=== PATIENT | female | born 1990 | race Two or more races ===

== ENCOUNTER 2016-08-29 19:57 | Inpatient (IN) | payer SELFPAY ==
[~2016-08-29] VITALS: Ht 160 cm; Wt 76.2 kg
[2016-08-29] MEDS ORDERED: MAG HYDROX/ALUMINUM HYDROX/SMC 30 ML ORAL.SUSP PO PRN (20:15)
[2016-08-29] MEDS ORDERED: FENTANYL PF 100 MCG/2 ML VIAL. IV PRN (20:15)
[2016-08-29] MEDS ORDERED: ACETAMINOPHEN 325 MG TABLET. PO PRN (20:15)
[2016-08-29] MEDS ORDERED: ONDANSETRON PF 4 MG/2 ML VIAL. IV PRN (20:15)
[2016-08-29] MEDS ORDERED: 0.9 % SODIUM CHLORIDE 10 ML DISP.SYRIN. IV PRN (20:15)
[2016-08-29] MEDS ORDERED: BUTORPHANOL 2 MG VIAL. IV PRN (20:15)
[2016-08-29] MEDS ORDERED: OXYTOCIN 30 UNIT/500 ML PREMIX 500 ML IV PRN ×2 (20:15)
[2016-08-29] MEDS ORDERED: LIDOCAINE 1% PF 30 ML VIAL. INJ PRN (20:15)
[2016-08-29] MEDS ORDERED: DIPHENHYDRAMINE HCL 25 MG CAPSULE PO PRN (20:15)
[2016-08-29] MEDS ORDERED: IBUPROFEN 600 MG TABLET. PO PRN (20:15)
[2016-08-29] MEDS ORDERED: TERBUTALINE 1 MG/ML VIAL. SQ PRN (20:15)
[2016-08-29] MEDS ORDERED: DINOPROSTONE 10 MG SUPP.VAG VG ONE (20:30)
[2016-08-29] MEDS: IV RINGERS,LACTATED 1000ML 1,000 ML IV SCH (20:56)
[2016-08-29 21:11] VITALS: BP 122/57
[2016-08-29 21:25] LABS: HEMATOCRIT 34.3 % (36.0-47.0); HEMOGLOBIN 11.4 g/dL (12.0-15.5); RED BLOOD COUNT 3.99 x10^6/uL (3.50-5.40); RED CELL DISTRIBUTION WIDTH 15.6 % (11.5-14.5); WHITE BLOOD COUNT 7.6 x10^3/uL (4.0-11.0)
[2016-08-30] MEDS: IV RINGERS,LACTATED 1000ML 1,000 ML IV SCH ×2 (09:08→17:12)
--- NOTE | 2016-08-30 11:20 | PDOC1 ---
OB - History Hx of Present Care: Good Care Ultrasounds: Normal mid trimester US Obstetrical Complications: Other (Oligohydramnios) Medical Complications: None Past Family/Social History * Past Medical, Surgical, Family and Obstetric Histories reviewed from chart. Rubella: Immune RPR/VDRL: Negative GBS Status: Negative HBsAG: Negative OB - Chief Complaint & HPI Date of Admission: Date of Admission: Aug 29, 2016 at 19:57 Chief Complaint/History : 2 Para: 1 Reason for admission: induction of labor Indication for induction: other (oligohydramnios) Admission Nurse Assessment Rev: Yes Problems: OB - Admission Exam Physical Exam Vitals: VS - Last 72 Hours, by Label Date Time Temp Pulse Resp B/P Pulse Ox O2 Delivery O2 Flow Rate FiO2 08/29/16 21:11 98.1 65 20 122/57 Room Air 98.1 HEENT: Normal Heart: Regular Rate Lungs: Clear Abdomen: Gravid, Non tender, Soft Extremities: Edema Reflexes: Normal Cervical Dilatation: None Effacement: 25% Station: Ballotable Membranes: Intact Heart Rate: Normal Accelerations: Accelerations Present Decelerations: No decelerations Contractions on Admission: None Text A: 40 wks IUP Oligohydramnios P: Admit for cervidil induction, then pitocin in am. ALEXI GOLDBERG Jr, MD Aug 30, 2016 11:20
[2016-08-30] MEDS ORDERED: OXYTOCIN 10 UNIT/ML VIAL. ONE ×2 (11:28→11:58)
[2016-08-30] MEDS ORDERED: ONDANSETRON PF 4 MG/2 ML VIAL. ONE (11:29)
[2016-08-30] MEDS ORDERED: PHENYLEPHRINE in 0.9% NACL PF 1 MG/10 ML DISP.SYRIN. IV ONE (11:29)
[2016-08-30] MEDS ORDERED: EPHEDRINE PF IN SALINE 50 MG/5 ML DISP.SYRIN. IV ONE (11:29)
[2016-08-30] MEDS ORDERED: FENTANYL PF 100 MCG/2 ML VIAL. ONE (11:30)
[2016-08-30] MEDS ORDERED: MORPHINE PF 5 MG/10 ML VIAL. ONE (11:30)
[2016-08-30] MEDS ORDERED: CEFAZOLIN 2GM PREMIX 50 ML IV ONE (11:40)
--- NOTE | 2016-08-30 12:22 | PDOC4 ---
OB Operative Note PRE OP DIAGNOSIS: NRFHT POST OP DIAGNOSIS: NRFHT OPERATION PERFORMED: [address] Ramesh Bus Steward Mitul Anesthesia: Regional (Spinal) Blood Loss 500 ml Specimen placenta and OB Findings: Position (Vertex), Sex (Male), (8/9), Weight (3520 Gram), Fluid (Clear) Complications none Additional Remarks pt. stable. ALEXI RAMESH Jr, MD Aug 30, 2016 12:22
[2016-08-30] MEDS ORDERED: DIPHENHYDRAMINE ORAL ELIXIR 12.5 MG/5 ML. PO PRN (12:30)
[2016-08-30] MEDS ORDERED: ZOLPIDEM 5 MG TABLET. PO PRN (12:30)
[2016-08-30] MEDS ORDERED: OXYTOCIN 30 UNIT/500 ML PREMIX 500 ML IV PRN (12:30)
[2016-08-30] MEDS ORDERED: SIMETHICONE 80 MG TAB.CHEW PO PRN (12:30)
[2016-08-30] MEDS ORDERED: 0.9 % SODIUM CHLORIDE 10 ML DISP.SYRIN. IV PRN (12:30)
[2016-08-30] MEDS ORDERED: MAG HYDROX/ALUMINUM HYDROX/SMC 30 ML ORAL.SUSP PO PRN (12:30)
[2016-08-30] MEDS ORDERED: ONDANSETRON PF 4 MG/2 ML VIAL. IV PRN (12:30)
[2016-08-30] MEDS: KETOROLAC TROMETHAMINE 30 MG/ML SYRINGE. IV PRN (14:17)
[2016-08-30 15:35] VITALS: BP 109/66
[2016-08-30 16:05] VITALS: BP 119/57
[2016-08-30 16:35] VITALS: BP 98/63
[2016-08-30 17:10] VITALS: BP 110/70
--- NOTE | 2016-08-30 18:03 | OP ---
DATE OF SURGERY: PREOPERATIVE DIAGNOSES: 1. 40 weeks' intrauterine . 2. Oligohydramnios. 3. intolerance to labor. POSTOPERATIVE DIAGNOSES: 1. 40 weeks' intrauterine . 2. Oligohydramnios. 3. intolerance to labor. PROCEDURE: Primary low transverse section. SURGEON: Alexi Ramesh MD SOCK EXAMINER: Mitul. ANESTHESIA: Spinal. ESTIMATED BLOOD LOSS: 500 mL. COMPLICATIONS: None. FINDINGS: Viable male , Apgars 8 and 9, weight 3520 grams. Three-vessel cord placenta delivered manually intact. SUMMARY: A 26-year-old 2, para 1 at 40 weeks' gestation who presented for induction of labor secondary to oligohydramnios. The patient was provided Cervidil for cervical ripening overnight. The following morning, she was provided Pitocin augmentation. The patient then began having recurrent variable decelerations and scalp electrode and IUPC were placed. Pitocin was turned off, she continued to have late decelerations indicating intolerance to labor. She was only dilated 3 cm. The patient was counseled on the need for emergent section. Risks, benefits and expectations with drop wirer and voiced clear understanding. DESCRIPTION OF PROCEDURE: The patient was taken to surgery suite and placed in dorsal supine position where she was prepped with ChloraPrep and draped in sterile fashion. After adequate anesthesia, a Pfannenstiel skin incision was made with a scalpel down to and through the fascia. Fascia was extended laterally using curved Sofia scissors. The superior edge of the fascia was grasped with two Allis clamps and dissected free of the abdominal rectus muscle superiorly using blunt dissection along with Bovie cautery. The same process took place inferiorly. The abdominal rectus muscles were dissected bluntly at the midline. The peritoneum was grasped with 2 hemostats and entered sharply with Metzenbaum scissors. This incision was extended superiorly as well as inferiorly. The Familia ring retractor was placed. Low transverse hysterotomy incision made with scalpel down to the infant. The hysterotomy incision was extended laterally and superiorly digitally. With the aid of fundal pressure, the infant's head was delivered in a smooth atraumatic manner. With additional fundal pressure, the posterior shoulder was delivered followed by the anterior shoulder. Rest of male was delivered. was suctioned with bulb syringe orally and nasally. The umbilical cord was clamped twice, cut and viable male was handed to waiting nursing staff. Umbilical cord blood and arterial pH were obtained. Three-vessel cord placenta was delivered manually intact. The uterus was exteriorized, cleared of clot and debris with moist lap. The hysterotomy incision was reapproximated using 1-0 Vicryl suture in a running locked fashion. Uterus palpated firm. Fallopian tubes and ovaries appeared normal bilaterally. Posterior cul-de-sac was cleared of clot and debris with moist lap. The uterus was then returned to the abdomen. Hysterotomy incision was reviewed and was hemostatic. Pericolic gutters were cleared of clot and debris with moist lap. Interceed was placed over the hysterotomy incision in an inverted T fashion. The Familia ring retractor was removed. Pericolic gutters were cleared of clot and debris with a moist lap. The peritoneum was reapproximated using 1-0 Vicryl suture in running fashion. Fascia was reapproximated using 0 Vicryl suture in running fashion. Skin was reapproximated using 4-0 Vicryl suture in a subcuticular manner. The patient tolerated the procedure well and was taken to recovery room in stable condition. Sponge and needle counts correct x 3. ALEXI RAMESH MD DR: EDY/luc JOB#: [id number] / [id number]
[2016-08-30 18:25] VITALS: BP 116/59
[2016-08-30 22:00] VITALS: BP 109/70
[2016-08-31] MEDS: IV RINGERS,LACTATED 1000ML 1,000 ML IV SCH (00:59)
[2016-08-31 01:03] VITALS: BP 99/57
[2016-08-31 06:18] LABS: BASO % 0 % (0-3); EOS % 1 % (0-3); HEMATOCRIT 28.6 % (36.0-47.0); HEMOGLOBIN 9.8 g/dL (12.0-15.5); LYMPH # 1.8 x10^3/uL (1.0-4.8); LYMPH % 16 % (24-48); MEAN CORPUSCULAR HEMOGLOBIN 29 pg (25-35); MEAN CORPUSCULAR HGB CONC 34 g/dL (31-37); MEAN CORPUSCULAR VOLUME 84 fL (79-100); MONO % 8 % (0-9); NEUT % 75 % (31-73); PLATELET COUNT 235 x10^3/uL (140-400); RED CELL DISTRIBUTION WIDTH 15.6 % (11.5-14.5); WHITE BLOOD COUNT 11.1 x10^3/uL (4.0-11.0)
[2016-08-31] MEDS: KETOROLAC TROMETHAMINE 30 MG/ML SYRINGE. IV PRN (06:30)
[2016-08-31 06:32] VITALS: BP 110/63
[2016-08-31 09:00] VITALS: BP 110/63
[2016-08-31] MEDS: FERROUS SULFATE 325 MG TABLET PO SCH (10:30)
[2016-08-31 12:30] VITALS: BP 110/55
[2016-08-31] MEDS: OXYCODONE/APAP 5/325 TABLET. PO PRN ×3 (13:49→22:39)
[2016-08-31 17:51] VITALS: BP 105/58
[2016-08-31] MEDS: IBUPROFEN 800 MG TABLET. PO PRN (18:24)
--- NOTE | 2016-08-31 18:36 | PDOC ---
OB Progress Note Date of Service 08/31/16 Time of Evaluation 1830 Problem List Problems Medical Problems: (1) delivery delivered Status: Acute Notes Pt. feeling well. No complaints. Lab Laboratory Tests Test 08/29/16 20:45 08/31/16 05:47 White Blood Count 7.6x10^3/uL (4.0-11.0) 11.1x10^3/uL (4.0-11.0) Red Blood Count 3.99x10^6/uL (3.50-5.40) 3.40x10^6/uL (3.50-5.40) Hemoglobin 11.4g/dL (12.0-15.5) 9.8g/dL (12.0-15.5) Hematocrit 34.3% (36.0-47.0) 28.6% (36.0-47.0) Mean Corpuscular Volume 86fL (79-100) 84fL (79-100) Mean Corpuscular Hemoglobin 29pg (25-35) 29pg (25-35) Mean Corpuscular Hemoglobin Concent 33g/dL (31-37) 34g/dL (31-37) Red Cell Distribution Width 15.6% (11.5-14.5) 15.6% (11.5-14.5) Platelet Count 272x10^3/uL (140-400) 235x10^3/uL (140-400) RPR Titer Additional Testing Non reactive (Non Reactive) Neutrophils (%) (Auto) 75% (31-73) Lymphocytes (%) (Auto) 16% (24-48) Monocytes (%) (Auto) 8% (0-9) Eosinophils (%) (Auto) 1% (0-3) Basophils (%) (Auto) 0% (0-3) Neutrophils # (Auto) 8.3x10^3uL (1.8-7.7) Lymphocytes # (Auto) 1.8x10^3/uL (1.0-4.8) Monocytes # (Auto) 0.9x10^3/uL (0.0-1.1) Eosinophils # (Auto) 0.1x10^3/uL (0.0-0.7) Basophils # (Auto) 0.0x10^3/uL (0.0-0.2) Laboratory Tests Test 08/31/16 05:47 White Blood Count 11.1x10^3/uL (4.0-11.0) Red Blood Count 3.40x10^6/uL (3.50-5.40) Hemoglobin 9.8g/dL (12.0-15.5) Hematocrit 28.6% (36.0-47.0) Mean Corpuscular Volume 84fL (79-100) Mean Corpuscular Hemoglobin 29pg (25-35) Mean Corpuscular Hemoglobin Concent 34g/dL (31-37) Red Cell Distribution Width 15.6% (11.5-14.5) Platelet Count 235x10^3/uL (140-400) Neutrophils (%) (Auto) 75% (31-73) Lymphocytes (%) (Auto) 16% (24-48) Monocytes (%) (Auto) 8% (0-9) Eosinophils (%) (Auto) 1% (0-3) Basophils (%) (Auto) 0% (0-3) Neutrophils # (Auto) 8.3x10^3uL (1.8-7.7) Lymphocytes # (Auto) 1.8x10^3/uL (1.0-4.8) Monocytes # (Auto) 0.9x10^3/uL (0.0-1.1) Eosinophils # (Auto) 0.1x10^3/uL (0.0-0.7) Basophils # (Auto) 0.0x10^3/uL (0.0-0.2) Medications Current Medications Sodium Chloride 3 ml 3 ml QSHIFT PRN IV AFTER MEDS AND BLOOD DRAWS; Start at 20:15 Lactated Ringer's (Iv Lactated Ringers) 1,000 ml @ 125 mls/hr Q8H IV Last administered on 08/31/16t 00:59; Start 08/29/16 at 20:05 Butorphanol Tartrate (Stadol) 2 mg PRN Q1HR PRN IV Severe labor pain; Start 08/29/16 at 20:15 Fentanyl Citrate (Fentanyl 2ml Vial) 100 mcg PRN Q20MIN PRN IV Labor pain; Start 08/29/16 at 20:15 Acetaminophen (Tylenol) 650 mg PRN Q6HRS PRN PO MILD PAIN / TEMP; Start at 20:15 Ondansetron HCl (Zofran) 4 mg PRN Q4HRS PRN IV NAUSEA/VOMITING Last administered on 08/30/16 19:28; Start 08/29/16 at 20:15 Al Hydroxide/Mg Hydroxide (Mylanta Plus Xs) 30 ml PRN Q4HRS PRN PO HEARTBURN / GAS; Start 08/29/16 at 20:15 Terbutaline Sulfate (Brethine) 0.25 mg 1X PRN PRN SQ SEE COMMENTS; Start at 20:15; Stop 08/30/16 at 20:14; Status DC Lidocaine HCl 30 ml 30 ml 1X PRN PRN INJ SEE COMMENTS; Start 08/29/16 at 20:15; Stop 08/31/16 at 20:14 Oxytocin/Sodium Chloride 500 ml @ 0 mls/hr CONT PRN IV SEE I/O RECORD Last administered on 08/30/16 06:39; Start 08/29/16 at 20:15 Oxytocin/Sodium Chloride (Oxytocin Premix Infusion) 500 ml @ 0 mls/hr CONT PRN PRN IV Post delivery bleeding; Start 08/29/16 at 20:15 Ibuprofen (Motrin) 600 mg PRN Q6HRS PRN PO PAIN; Start 08/29/16 at 20:15 Dinoprostone (Cervidil) 10 mg 1X ONCE VG Last administered on 08/29/16 20:56; Start 08/29/16 at 20:30; Stop 08/29/16 at 20:31; Status DC Diphenhydramine HCl (Benadryl) 50 mg PRN QHS PRN PO INSOMNIA; Start 08/29/16 at 20:15 Oxytocin (Pitocin) 10 unit STK-MED ONCE .ROUTE ; Start 08/30/16 at 11:28; Stop at 11:29; Status DC Ephedrine Sulfate 50 mg STK-MED ONCE IV ; Start 08/30/16 at 11:29; Stop 08/30/16 at 11:30; Status DC Phenylephrine HCl 1 mg STK-MED ONCE IV ; Start 08/30/16 at 11:29; Stop 08/30/16 at 11:30; Status DC Ondansetron HCl (Zofran) 4 mg STK-MED ONCE .ROUTE ; Start 08/30/16 at 11:29; Stop 08/30/16 at 11:30; Status DC Fentanyl Citrate (Fentanyl 2ml Vial) 100 mcg STK-MED ONCE .ROUTE ; Start at 11:30; Stop 08/30/16 at 11:31; Status DC Morphine Sulfate 5 mg 5 mg STK-MED ONCE .ROUTE ; Start 08/30/16 at 11:30; Stop at 11:31; Status DC Cefazolin Sodium/ Dextrose (Ancef 2gm Premix) 50 ml @ As Directed STK-MED ONCE IV ; Start 08/30/16 at 11:40; Stop 08/30/16 at 11:41; Status DC Oxytocin (Pitocin) 10 unit STK-MED ONCE .ROUTE ; Start 08/30/16 at 11:58; Stop at 11:59; Status DC Sodium Chloride 3 ml 3 ml QSHIFT PRN IV AFTER MEDS AND BLOOD DRAWS; Start at 12:30 Oxytocin/Sodium Chloride (Oxytocin Premix Infusion) 500 ml @ 125 mls/hr CONT PRN IV EXCESSIVE POST- BLEEDING; Start 08/30/16 at 12:30; Stop 08/30/16 at 20:29; Status DC Ibuprofen (Motrin) 800 mg PRN Q8HRS PRN PO INFLAMMATION Last administered on t 18:24; Start 08/30/16 at 12:30 Ondansetron HCl (Zofran) 4 mg PRN Q6HRS PRN IV NAUSEA/VOMITING; Start 08/30/16 at 12:30 Docusate Sodium (Colace) 100 mg PRN BID PRN PO CONSTIPATION; Start 08/30/16 at 12:30 Al Hydroxide/Mg Hydroxide (Mylanta Plus Xs) 30 ml PRN Q4HRS PRN PO HEARTBURN / GAS; Start 08/30/16 at 12:30 Simethicone (Gas-X) 80 mg PRN AFTMEALHC PRN PO GAS / BLOATING; Start 08/30/16 at 12:30 Diphenhydramine HCl (Benadryl Oral Elixir) 12.5 mg PRN Q6HRS PRN PO ITCHING; Start 08/30/16 at 12:30 Ferrous Sulfate (Feosol) 325 mg BIDWMEALS PO Last administered on 08/31/16 10: 30; Start 08/30/16 at 17:00 Zolpidem Tartrate (Ambien) 5 mg PRN QHS PRN PO INSOMNIA, MAY REPEAT X1; Start 08/30/16 at 12:30 Oxycodone/ Acetaminophen (Percocet 5/325) 2 tab PRN Q4HRS PRN PO MODERATE PAIN , SEVERE PAIN Last administered on 08/31/16 18:24; Start 08/30/16 at 12:30 Ketorolac Tromethamine (Toradol) 30 mg PRN Q6HRS PRN IV PAIN Last administered on 08/31/16 06:30; Start 08/30/16 at 12:30; Stop 09/04/16 at 12:29 Exam Abd: soft, mild tenderness, fundus firm Bandage in place. Assessment POD#1 s/p c/s Plan of Care: Continue current Tx, Mgmt ALEXI GOLDBERG Jr, MD Aug 31, 2016 18:36
[2016-08-31 22:40] VITALS: BP 99/63
[2016-09-01 06:15] VITALS: BP 106/71
[2016-09-01] MEDS: DOCUSATE SODIUM 100 MG CAPSULE PO PRN (07:58)
[2016-09-01] MEDS: IBUPROFEN 800 MG TABLET. PO PRN ×2 (07:58→17:33)
[2016-09-01] MEDS: OXYCODONE/APAP 5/325 TABLET. PO PRN ×2 (07:58→13:51)
[2016-09-01] MEDS: FERROUS SULFATE 325 MG TABLET PO SCH ×2 (07:58→17:33)
[2016-09-01 10:50] VITALS: BP 105/61
--- NOTE | 2016-09-01 13:37 | PDOC ---
OB Progress Note Date of Service 09/01/16 Time of Evaluation 1330 Problem List Problems Medical Problems: (1) delivery delivered Status: Acute Notes Pt. feeling well. No complaints. Lab Laboratory Tests Test 08/31/16 05:47 White Blood Count 11.1x10^3/uL (4.0-11.0) Red Blood Count 3.40x10^6/uL (3.50-5.40) Hemoglobin 9.8g/dL (12.0-15.5) Hematocrit 28.6% (36.0-47.0) Mean Corpuscular Volume 84fL (79-100) Mean Corpuscular Hemoglobin 29pg (25-35) Mean Corpuscular Hemoglobin Concent 34g/dL (31-37) Red Cell Distribution Width 15.6% (11.5-14.5) Platelet Count 235x10^3/uL (140-400) Neutrophils (%) (Auto) 75% (31-73) Lymphocytes (%) (Auto) 16% (24-48) Monocytes (%) (Auto) 8% (0-9) Eosinophils (%) (Auto) 1% (0-3) Basophils (%) (Auto) 0% (0-3) Neutrophils # (Auto) 8.3x10^3uL (1.8-7.7) Lymphocytes # (Auto) 1.8x10^3/uL (1.0-4.8) Monocytes # (Auto) 0.9x10^3/uL (0.0-1.1) Eosinophils # (Auto) 0.1x10^3/uL (0.0-0.7) Basophils # (Auto) 0.0x10^3/uL (0.0-0.2) Medications Current Medications Sodium Chloride 3 ml 3 ml QSHIFT PRN IV AFTER MEDS AND BLOOD DRAWS; Start at 20:15; Stop 09/01/16 at 06:05; Status DC Lactated Ringer's (Iv Lactated Ringers) 1,000 ml @ 125 mls/hr Q8H IV Last administered on 08/31/16t 00:59; Start 08/29/16 at 20:05; Stop 09/01/16 at 06:05; Status DC Butorphanol Tartrate (Stadol) 2 mg PRN Q1HR PRN IV Severe labor pain; Start 08/29/16 at 20:15 Fentanyl Citrate (Fentanyl 2ml Vial) 100 mcg PRN Q20MIN PRN IV Labor pain; Start 08/29/16 at 20:15 Acetaminophen (Tylenol) 650 mg PRN Q6HRS PRN PO MILD PAIN / TEMP; Start at 20:15 Ondansetron HCl (Zofran) 4 mg PRN Q4HRS PRN IV NAUSEA/VOMITING Last administered on 08/30/16 19:28; Start 08/29/16 at 20:15 Al Hydroxide/Mg Hydroxide (Mylanta Plus Xs) 30 ml PRN Q4HRS PRN PO HEARTBURN / GAS; Start 08/29/16 at 20:15 Terbutaline Sulfate (Brethine) 0.25 mg 1X PRN PRN SQ SEE COMMENTS; Start at 20:15; Stop 08/30/16 at 20:14; Status DC Lidocaine HCl 30 ml 30 ml 1X PRN PRN INJ SEE COMMENTS; Start 08/29/16 at 20:15; Stop 08/31/16 at 20:14; Status DC Oxytocin/Sodium Chloride 500 ml @ 0 mls/hr CONT PRN IV SEE I/O RECORD Last administered on 08/30/16 06:39; Start 08/29/16 at 20:15 Oxytocin/Sodium Chloride (Oxytocin Premix Infusion) 500 ml @ 0 mls/hr CONT PRN PRN IV Post delivery bleeding; Start 08/29/16 at 20:15 Ibuprofen (Motrin) 600 mg PRN Q6HRS PRN PO PAIN; Start 08/29/16 at 20:15 Dinoprostone (Cervidil) 10 mg 1X ONCE VG Last administered on 08/29/16 20:56; Start 08/29/16 at 20:30; Stop 08/29/16 at 20:31; Status DC Diphenhydramine HCl (Benadryl) 50 mg PRN QHS PRN PO INSOMNIA; Start 08/29/16 at 20:15 Oxytocin (Pitocin) 10 unit STK-MED ONCE .ROUTE ; Start 08/30/16 at 11:28; Stop at 11:29; Status DC Ephedrine Sulfate 50 mg STK-MED ONCE IV ; Start 08/30/16 at 11:29; Stop 08/30/16 at 11:30; Status DC Phenylephrine HCl 1 mg STK-MED ONCE IV ; Start 08/30/16 at 11:29; Stop 08/30/16 at 11:30; Status DC Ondansetron HCl (Zofran) 4 mg STK-MED ONCE .ROUTE ; Start 08/30/16 at 11:29; Stop 08/30/16 at 11:30; Status DC Fentanyl Citrate (Fentanyl 2ml Vial) 100 mcg STK-MED ONCE .ROUTE ; Start at 11:30; Stop 08/30/16 at 11:31; Status DC Morphine Sulfate 5 mg 5 mg STK-MED ONCE .ROUTE ; Start 08/30/16 at 11:30; Stop at 11:31; Status DC Cefazolin Sodium/ Dextrose (Ancef 2gm Premix) 50 ml @ As Directed STK-MED ONCE IV ; Start 08/30/16 at 11:40; Stop 08/30/16 at 11:41; Status DC Oxytocin (Pitocin) 10 unit STK-MED ONCE .ROUTE ; Start 08/30/16 at 11:58; Stop at 11:59; Status DC Sodium Chloride 3 ml 3 ml QSHIFT PRN IV AFTER MEDS AND BLOOD DRAWS; Start at 12:30; Stop 09/01/16 at 06:05; Status DC Oxytocin/Sodium Chloride (Oxytocin Premix Infusion) 500 ml @ 125 mls/hr CONT PRN IV EXCESSIVE POST- BLEEDING; Start 08/30/16 at 12:30; Stop 08/30/16 at 20:29; Status DC Ibuprofen (Motrin) 800 mg PRN Q8HRS PRN PO INFLAMMATION Last administered on 07:58; Start 08/30/16 at 12:30 Ondansetron HCl (Zofran) 4 mg PRN Q6HRS PRN IV NAUSEA/VOMITING; Start 08/30/16 at 12:30 Docusate Sodium (Colace) 100 mg PRN BID PRN PO CONSTIPATION Last administered on 09/01/16 07:58; Start 08/30/16 at 12:30 Al Hydroxide/Mg Hydroxide (Mylanta Plus Xs) 30 ml PRN Q4HRS PRN PO HEARTBURN / GAS; Start 08/30/16 at 12:30 Simethicone (Gas-X) 80 mg PRN AFTMEALHC PRN PO GAS / BLOATING; Start 08/30/16 at 12:30 Diphenhydramine HCl (Benadryl Oral Elixir) 12.5 mg PRN Q6HRS PRN PO ITCHING; Start 08/30/16 at 12:30 Ferrous Sulfate (Feosol) 325 mg BIDWMEALS PO Last administered on 09/01/16 07: 58; Start 08/30/16 at 17:00 Zolpidem Tartrate (Ambien) 5 mg PRN QHS PRN PO INSOMNIA, MAY REPEAT X1; Start 08/30/16 at 12:30 Oxycodone/ Acetaminophen (Percocet 5/325) 2 tab PRN Q4HRS PRN PO MODERATE PAIN , SEVERE PAIN Last administered on 09/01/16 07:58; Start 08/30/16 at 12:30 Ketorolac Tromethamine (Toradol) 30 mg PRN Q6HRS PRN IV PAIN Last administered on 08/31/16 06:30; Start 08/30/16 at 12:30; Stop 09/04/16 at 12:29 Exam Abd: soft, non tender, fundus firm Incision site: clean, dry and intact Assessment POD#2 s/p c/s Plan of Care: Continue current Tx, Mgmt ALEXI GOLDBERG Jr, MD Sep 01, 2016 13:37
[2016-09-01 17:35] VITALS: BP 115/61
[2016-09-01 22:41] VITALS: BP 105/62
[2016-09-02 04:00] VITALS: BP 112/81
[2016-09-02] MEDS: OXYCODONE/APAP 5/325 TABLET. PO PRN ×2 (04:00→11:53)
[2016-09-02] MEDS: DOCUSATE SODIUM 100 MG CAPSULE PO PRN (04:00)
[2016-09-02] MEDS: IBUPROFEN 800 MG TABLET. PO PRN ×2 (04:00→14:10)
[2016-09-02 10:00] VITALS: BP 110/67
[2016-09-02] MEDS: FERROUS SULFATE 325 MG TABLET PO SCH (11:52)
--- NOTE | 2016-09-02 12:07 | PDOC ---
OB Progress Note Date of Service 09/02/16 Time of Evaluation 1200 Problem List Problems Medical Problems: (1) delivery delivered Status: Acute Notes Pt. feeling well. No complaints. Medications Current Medications Sodium Chloride 3 ml 3 ml QSHIFT PRN IV AFTER MEDS AND BLOOD DRAWS; Start at 20:15; Stop 09/01/16 at 06:05; Status DC Lactated Ringer's (Iv Lactated Ringers) 1,000 ml @ 125 mls/hr Q8H IV Last administered on 08/31/16 00:59; Start 08/29/16 at 20:05; Stop 09/01/16 at 06:05; Status DC Butorphanol Tartrate (Stadol) 2 mg PRN Q1HR PRN IV Severe labor pain; Start 08/29/16 at 20:15 Fentanyl Citrate (Fentanyl 2ml Vial) 100 mcg PRN Q20MIN PRN IV Labor pain; Start 08/29/16 at 20:15 Acetaminophen (Tylenol) 650 mg PRN Q6HRS PRN PO MILD PAIN / TEMP; Start at 20:15 Ondansetron HCl (Zofran) 4 mg PRN Q4HRS PRN IV NAUSEA/VOMITING Last administered on 08/30/16 19:28; Start 08/29/16 at 20:15 Al Hydroxide/Mg Hydroxide (Mylanta Plus Xs) 30 ml PRN Q4HRS PRN PO HEARTBURN / GAS; Start 08/29/16 at 20:15 Terbutaline Sulfate (Brethine) 0.25 mg 1X PRN PRN SQ SEE COMMENTS; Start at 20:15; Stop 08/30/16 at 20:14; Status DC Lidocaine HCl 30 ml 30 ml 1X PRN PRN INJ SEE COMMENTS; Start 08/29/16 at 20:15; Stop 08/31/16 at 20:14; Status DC Oxytocin/Sodium Chloride 500 ml @ 0 mls/hr CONT PRN IV SEE I/O RECORD Last administered on 08/30/16 06:39; Start 08/29/16 at 20:15 Oxytocin/Sodium Chloride (Oxytocin Premix Infusion) 500 ml @ 0 mls/hr CONT PRN PRN IV Post delivery bleeding; Start 08/29/16 at 20:15 Ibuprofen (Motrin) 600 mg PRN Q6HRS PRN PO PAIN; Start 08/29/16 at 20:15 Dinoprostone (Cervidil) 10 mg 1X ONCE VG Last administered on 08/29/16t 20:56; Start 08/29/16 at 20:30; Stop 08/29/16 at 20:31; Status DC Diphenhydramine HCl (Benadryl) 50 mg PRN QHS PRN PO INSOMNIA; Start 08/29/16 at 20:15 Oxytocin (Pitocin) 10 unit STK-MED ONCE .ROUTE ; Start 08/30/16 at 11:28; Stop at 11:29; Status DC Ephedrine Sulfate 50 mg STK-MED ONCE IV ; Start 08/30/16 at 11:29; Stop 08/30/16 at 11:30; Status DC Phenylephrine HCl 1 mg STK-MED ONCE IV ; Start 08/30/16 at 11:29; Stop 08/30/16 at 11:30; Status DC Ondansetron HCl (Zofran) 4 mg STK-MED ONCE .ROUTE ; Start 08/30/16 at 11:29; Stop 08/30/16 at 11:30; Status DC Fentanyl Citrate (Fentanyl 2ml Vial) 100 mcg STK-MED ONCE .ROUTE ; Start at 11:30; Stop 08/30/16 at 11:31; Status DC Morphine Sulfate 5 mg 5 mg STK-MED ONCE .ROUTE ; Start 08/30/16 at 11:30; Stop at 11:31; Status DC Cefazolin Sodium/ Dextrose (Ancef 2gm Premix) 50 ml @ As Directed STK-MED ONCE IV ; Start 08/30/16 at 11:40; Stop 08/30/16 at 11:41; Status DC Oxytocin (Pitocin) 10 unit STK-MED ONCE .ROUTE ; Start 08/30/16 at 11:58; Stop at 11:59; Status DC Sodium Chloride 3 ml 3 ml QSHIFT PRN IV AFTER MEDS AND BLOOD DRAWS; Start at 12:30; Stop 09/01/16 at 06:05; Status DC Oxytocin/Sodium Chloride (Oxytocin Premix Infusion) 500 ml @ 125 mls/hr CONT PRN IV EXCESSIVE POST- BLEEDING; Start 08/30/16 at 12:30; Stop 08/30/16 at 20:29; Status DC Ibuprofen (Motrin) 800 mg PRN Q8HRS PRN PO INFLAMMATION Last administered on 04:00; Start 08/30/16 at 12:30 Ondansetron HCl (Zofran) 4 mg PRN Q6HRS PRN IV NAUSEA/VOMITING; Start 08/30/16 at 12:30 Docusate Sodium (Colace) 100 mg PRN BID PRN PO CONSTIPATION Last administered on 09/02/16 04:00; Start 08/30/16 at 12:30 Al Hydroxide/Mg Hydroxide (Mylanta Plus Xs) 30 ml PRN Q4HRS PRN PO HEARTBURN / GAS; Start 08/30/16 at 12:30 Simethicone (Gas-X) 80 mg PRN AFTMEALHC PRN PO GAS / BLOATING; Start 08/30/16 at 12:30 Diphenhydramine HCl (Benadryl Oral Elixir) 12.5 mg PRN Q6HRS PRN PO ITCHING; Start 08/30/16 at 12:30 Ferrous Sulfate (Feosol) 325 mg BIDWMEALS PO Last administered on 09/02/16 11: 52; Start 08/30/16 at 17:00 Zolpidem Tartrate (Ambien) 5 mg PRN QHS PRN PO INSOMNIA, MAY REPEAT X1; Start 08/30/16 at 12:30 Oxycodone/ Acetaminophen (Percocet 5/325) 2 tab PRN Q4HRS PRN PO MODERATE PAIN , SEVERE PAIN Last administered on 09/02/16 11:53; Start 08/30/16 at 12:30 Ketorolac Tromethamine (Toradol) 30 mg PRN Q6HRS PRN IV PAIN Last administered on 08/31/16 06:30; Start 08/30/16 at 12:30; Stop 09/04/16 at 12:29 Exam Abd: soft, non tender, fundus Incision site: clean, dry and intact Assessment POD#3 s/p c/s Plan of Care: See new orders (D/c home.) ALEXI GOLDBERG Jr, MD Sep 02, 2016 12:07
--- NOTE | 2016-09-02 12:07 | DISCH ---
DISCHARGE INSTRUCTIONS Condition on Discharge Condition on Discharge: Stable Activity After Discharge Activity Instructions for Disc: Activity as tolerated Lifting Instructions after Dis: No heavy lifting Driving Instructions after Dis: Do not drive today Diet after Discharge Diet after Discharge: Regular Contacting the [facility] after DC Call your doctor for: Concerns you may have Follow-Up Follow up with: [facility] in 2 weeks. ALEXI GOLDBERG Jr, MD Sep 02, 2016 12:07
[2016-09-02] MEDS ORDERED: DOCU-27 PO (12:09)
[2016-09-02] MEDS ORDERED: OXYC-323 PO (12:09)
[2016-09-02] MEDS ORDERED: IBUP-1060 PO (12:09)
[2016-09-02 14:05] VITALS: BP 116/69
== END 2016-09-02 14:30 | disposition home or self-care (01) | DRG 766 ==
LOC: 3 SO LND 19:57
PROVIDERS: ADMIT Obstetrics & Gynecology; ATTEND Obstetrics & Gynecology
PROC: 10D00Z1 Extraction of Products of Conception, Low, Open Approach (ICD-10-PCS; principal; 2016-08-30)
DX: O41.03X0 Oligohydramnios, third trimester, not applicable or unspecified (principal); Z3A.40 40 weeks gestation of pregnancy; Z37.0 Single live birth
CPT/HCPCS: 36415; 85027; 86593; 86850; 86900; 86901; 92585; J0690; J1885; J2270; J2370; J2405; J2590; J3010; J7120